=== PATIENT | female | born 1975 | race Caucasian/White ===

== ENCOUNTER → 2016-07-19 | Outpatient (CLI) | payer BC ==
--- NOTE | 2016-07-22 15:50 | MAM ---
History: Well woman exam. Date of exam: 07/19/2016 Services provided: Bilateral full field digital screening mammography. CAD, the images were reviewed with R2 computer aided detection. FINDINGS: Glandular tissue is scattered glandular contour. Bilateral subpectoral implants have a mammographically benign appearance. Comparison with 2014 study. Routine and [place] views are obtained. No dominant mass, architectural distortion or clustered microcalcification. IMPRESSION: Benign exam Recommendation: Routine annual mammography BIRAD CATEGORY: 2 BENIGN Electronically signed by: Ronel Javier MD 07/22/2016 3:38 PM CDT
== END | disposition home or self-care (01) ==
LOC: MAMMO 14:13
PROVIDERS: ATTEND Obstetrics & Gynecology
DX: Z12.31 Encounter for screening mammogram for malignant neoplasm of breast (principal)

== ENCOUNTER → 2016-12-11 | Outpatient (CLI) | payer SELFPAY ==
--- NOTE | 2016-12-11 21:37 | CT ---
PROCEDURE: Head HISTORY: MIGRAINE W/O AURA,INTRACTABLE,W/O STATUS MIGRAINOSUS Indication: Same as above Comparison: None Technique: CT of the head was done without intravenous contrast was done in the orthogonal planes. This exam was performed according to our departmental dose-optimization program, which includes automated exposure control, adjustment of the mA and/or KV according to the patient's size and/or use of iterative reconstruction technique. FINDINGS: There is no intracranial hemorrhage, midline shift mass effect or acute focal infarct. If clinical concern exists regarding an acute ischemic/vascular pathology being responsible for patient's symptomatology, an MRI of the brain is more sensitive than the current study, in ruling out such a possibility. There is good garcia/white matter differentiation. The ventricular system is normal. The mastoid air cells are unremarkable . The paranasal sinuses are unremarkable . There is no visualization of acute fractures involving the calvarium or the skull base. IMPRESSION: There is no acute intracranial abnormality. Electronically signed by: Gilles Ferguson MD 12/11/2016 9:35 PM CDT Workstation: [id number]
== END | disposition home or self-care (01) ==
LOC: CT 10:18
PROVIDERS: ATTEND Family Medicine
DX: G43.019 Migraine without aura, intractable, without status migrainosus (principal)

== ENCOUNTER → 2016-12-30 | Outpatient (CLI) | payer BC ==
--- NOTE | 2016-12-30 11:15 | MRI ---
EXAM DESCRIPTION: Brain w/oContrast CLINICAL HISTORY: MIGRAINE COMPARISON: CT head October 10, 2016 TECHNIQUE: Multiplanar, multi sequence MR images of the head are obtained without IV gadolinium contrast using standard imaging protocol. FINDINGS: The midline structures are not displaced. Sulci are age appropriate. The lateral, third, and fourth ventricles are normal in size, shape, and anatomic positioning. Normal garcia-white differentiation is seen. Normal flow voids are seen in the major intracranial vessels including the dural venous sinuses. There is no evidence of mass, mass effect, hydrocephalus, or acute intracranial hemorrhage. No abnormal extra-axial fluid collections are seen. No abnormal increased signal is seen on FLAIR, T2, or diffusion-weighted sequences. Gradient echo images show no abnormal signal. The pituitary is unremarkable. Mild mucosal thickening or mucous retention cyst in the floor the left maxillary sinus is seen. The visualized orbits and mastoid air cells are unremarkable. IMPRESSION: Unremarkable noncontrast MRI of the head. Electronically signed by: Miguel Cohen MD 12/30/2016 11:14 AM CDT
== END | disposition home or self-care (01) ==
LOC: MRI 10:10
PROVIDERS: ATTEND Family Medicine
DX: G43.019 Migraine without aura, intractable, without status migrainosus (principal)

== ENCOUNTER → 2017-04-07 | Outpatient (CLI) | payer BC | END | disposition home or self-care (01) | LOC: GMA 16:37 | PROVIDERS: ATTEND Nurse Practitioner Acute Care | DX: R13.19 Other dysphagia (principal) ==

== ENCOUNTER → 2017-04-09 | Outpatient (CLI) | payer BC ==
--- NOTE | 2017-04-09 20:31 | US ---
EXAM DESCRIPTION: Thyroid: Ultrasound. CLINICAL HISTORY: DYSPHAGIA COMPARISON: None. TECHNIQUE: Transcutaneous scannin-dimensional and Doppler modes. Largest nodule(s) bilaterally will have point score for TI-RADS. FINDINGS: Right lobe dimensions 4.4 x 1.4 x 1.4 cm. Heterogeneous echoes. Mostly cystic nodule measuring 3.6 x 3.4 x 2.5 mm with well-defined valencia, and parallel orientation (wider than tall). Minimal vascularity on the edge. Very hypoechoic but no echogenic foci. Normal vascularity in the remainder of the lobe with no echogenic foci. Contour right lobe smooth. Juxta-thyroid masses/fluid: none. Left lobe dimensions 4.4 x 1.4 x 1.3 cm. Homogeneous echoes. No cystic, no solid, and no complex lesions. Normal vascularity with no echogenic foci. Contour left lobe smooth. Juxta-thyroid masses/fluid: none. Isthmus thickness 2.3 mm. Homogeneous echoes. No cystic, no solid, and no complex lesions. Normal vascularity. Contour smooth. IMPRESSION: 1. Mostly cystic small nodule measuring 3.6 mm, with ACR TI RADS score 3. Grade TR 3-mildly suspicious. With greatest diameter less than 1.5 cm, one year ultrasound follow-up should be considered. 2. Left lobe and isthmus are unremarkable. No discrete solid masses, cystic masses, or edema in the surrounding soft tissues. *ACR TI-RADS recommendations: TR5 (greater than or equal to 7 points) - FNA if greater than or equal to 1 cm, follow-up if 0.5 - 0.9 cm every year for 5 years TR4 (4-6 points) - FNA if greater than or equal to 1.5 cm, follow-up if 1 - 1.4 cm in 1, 2, 3 and 5 years TR3 (3 points) - FNA if greater than or equal to 2.5 cm, follow -up if 1.5 - 2.4 cm in 1, 3 and 5 years TR2 (2 points) and TR1 (0 points) - No FNA or follow-up * ACR TI-RADS recommends that no more than two nodules with the highest ACR TI-RADS total point should be biopsied and no more than four nodules should be followed. White Paper of the ACR TI-RADS Committee, RAY, 2017. Electronically signed by: Maxwell Mendez MD 04/09/2017 8:30 PM [facility]
== END | disposition home or self-care (01) ==
LOC: US 09:57
PROVIDERS: ATTEND Nurse Practitioner Acute Care
DX: R13.19 Other dysphagia (principal)

== ENCOUNTER → 2017-08-06 | Outpatient (CLI) | payer BC ==
--- NOTE | 2017-08-06 16:23 | MAM ---
EXAM DESCRIPTION: 3D Screening BILATERAL : Digital Mammography. CLINICAL HISTORY: 42 years Female ANNUAL SCREENING . No complaints. No family history of breast cancer. Childbirth. Premenopausal. Bilateral breast augmentation. Currently on HRT. COMPARISON: 2-D digital screening bilateral study 06/22/2015. Report from prior examination also reviewed. TECHNIQUE: Bilateral CC and MLO projection full-field images, with [place] Implant Displacement 3-D tomosynthesis digital mammographic technique. CAD not utilized. Bilateral 2-D digital full-field images, MLO and CC projections, non-displaced, with CAD. FINDINGS: The breast parenchymal density pattern is: Scattered areas of fibroglandular density. No skin thickening or nipple retraction bilateral solitary microcalcifications. Bilateral retromuscular saline implants. Implant capsules appear intact where seen. No focal, stellate mass or density, focal asymmetry , and no suspicious microcalcifications bilaterally. Stable mammograms compared to prior study, taking into account differences in mammographic technique IMPRESSION: BI-RADS CATEGORY: 2 - BENIGN FINDINGS. FOLLOW UP: Routine digital bilateral screening, one year interval from July 2017. Written communication explaining the IMPRESSION and follow-up, will be mailed to the patient and referring health care provider. According to the [employer], yearly mammograms are recommended starting at age 40 and continuing as long as a woman is in good health. Any breast change noted on a breast self-exam should be reported promptly to the patient's healthcare provider. Breast MRI is recommended for women with an approximately 20-25% or greater lifetime risk of breast cancer, including women with a strong family history of breast or ovarian cancer and women who have been treated for Hodgkin's disease. A negative mammographic report should not delay tissue diagnosis in patients with significant clinical history or physical findings. Extremely dense breast tissue limits the sensitivity of digital mammography. Electronically signed by: Maxwell Mendez MD 08/06/2017 4:22 PM CDT
== END ==
LOC: MAMMO 11:32
PROVIDERS: ATTEND Family Medicine
DX: Z12.31 Encounter for screening mammogram for malignant neoplasm of breast (principal)

== ENCOUNTER → 2018-07-13 | Outpatient (CLI) | payer BC | LOC: GMALS 17:37 | PROVIDERS: ATTEND Nurse Practitioner Acute Care | DX: N95.8 Other specified menopausal and perimenopausal disorders (principal) ==

== ENCOUNTER → 2018-09-17 | Outpatient (CLI) | payer BC ==
--- NOTE | 2018-09-18 13:37 | MAM ---
EXAM DESCRIPTION: 3D Screening BILATERAL : Digital Mammography. CLINICAL HISTORY: 43 years Female Screening . No complaints. No personal or family history of breast cancer. Childbirth. Premenopausal. No HRT. Lifetime risk of developing breast cancer (Tyrer-Cuzick model)(%): 8.0. COMPARISON: Bilateral screening digital breast tomosynthesis 08/06/2017. TECHNIQUE: Bilateral CC and MLO projection full-field images, with [place] Implant Displacement digital tomosynthesis mammographic technique. Bilateral 2-D digital full-field images, MLO and CC projections, non-displaced. Bilateral digital 2-D full-field MLO images. Implant displaced. CAD not available for tomosynthesis or 2-D images. FINDINGS: The breast parenchymal density pattern is: Scattered areas of fibroglandular density. No skin thickening or nipple retraction. Solitary microcalcifications bilaterally. Bilateral retro-muscular saline implants. Capsules are intact where seen. No new focal, stellate mass or density, focal asymmetry , and no suspicious microcalcifications bilaterally. Stable mammograms compared to prior study. IMPRESSION: Benign exam. BIRAD CATEGORY: 2 BENIGN FINDINGS. RECOMMENDATIONS: FOLLOW UP: Routine digital bilateral mammographic screening, one year interval from August 2018. Written communication explaining the IMPRESSION and follow-up, will be mailed to the patient and referring health care provider. According to the [employer], yearly mammograms are recommended starting at age 40 and continuing as long as a woman is in good health. Any breast change noted on a breast self-exam should be reported promptly to the patient's healthcare provider. Breast MRI is recommended for women with an approximately 20-25% or greater lifetime risk of breast cancer, including women with a strong family history of breast or ovarian cancer and women who have been treated for Hodgkin's disease. A negative mammographic report should not delay tissue diagnosis in patients with significant clinical history or physical findings. Extremely dense breast tissue limits the sensitivity of digital mammography. Electronically signed by: Maxwell Mendez MD 09/18/2018 1:35 PM CDT
== END ==
LOC: MAMMO 13:00
PROVIDERS: ATTEND Family Medicine
DX: Z12.31 Encounter for screening mammogram for malignant neoplasm of breast (principal)

== ENCOUNTER → 2018-10-19 | Outpatient (CLI) | payer BC ==
--- NOTE | 2018-10-20 07:45 | MRI ---
EXAM DESCRIPTION: Lumbar Spine w/o Contrast : Magnetic Resonance Imaging. CLINICAL HISTORY: Lower extremity neuropathy COMPARISON: None. TECHNIQUE: Multiplanar, multiple standard sequences, non contrast MRI, lumbar spine. FINDINGS: L5-S1: The disc space is well visualized on axial T2-weighted series 501, image 3. Minimal disc space loss and desiccation. Tiny posterior midline bulge. Grade 1 anterolisthesis 2 mm. Abnormal signal in the bilateral pars interarticulares. Posterior elements unremarkable. Minimal disc bulge into the bilateral foramina abutting the exiting nerve roots which are mild to moderately narrowed. L4-L5: Minimal disc desiccation. No significant bulging with disc space maintained. Minimal thickening of the posterior flavum ligaments and mild arthrosis right facet. AP canal diameter 13 mm. Mild narrowing of the right foramen and moderate narrowing on the left with nerve root is abutted by facet. L3-L4: Normal signal in the disc and disc space maintained. No disc bulging. Bilateral mild facet hypertrophic arthrosis and ligament thickening. AP canal 11 mm. Bilateral foramina are patent. L2-L3: Minimal disc space loss and disc desiccation. No bulging. Minimal hypertrophy of the posterior ligaments. AP canal 11 mm. Bilateral foramina are patent. L1-L2: Minimal disc space loss. Minimal disc desiccation. No bulging. Posterior ligament thickening. Minimal facet hypertrophic arthrosis. Mild canal narrowing. Conus terminates at this level. L1 T12: Normal signal in the disc and disc space preserved. Posterior elements unremarkable. Canal and foramina are patent. No scoliosis. Minimal kyphosis. Paravertebral soft tissues unremarkable. Normal signal and caliber of the cord. Normal marrow signal in the remaining vertebral bodies and the posterior elements. Vertebral bodies are not compressed at any level. IMPRESSION: 1. Multiple discs are minimally desiccated. Minimal disc space loss at some levels. Canal narrowing at some levels due to thickening of the ligaments, hypertrophy of facets, and bilaterally shortened pedicles. No disc herniations. 2. Minimal disc space loss at L5-S1 and desiccation without herniation or significant canal or foraminal narrowing. Grade 1 anterolisthesis 2 mm. Possible bilateral L5 pars spondylolysis. Correlate with oblique lumbar spine radiographs. 3. Mild canal narrowing and moderate narrowing of the left foramen at L4-5. Moderate narrowing of the canal at L3-4 and L2-3. Electronically signed by: Maxwell Mendez MD 10/20/2018 7:43 AM CDT
== END ==
LOC: MRI 14:06
PROVIDERS: ATTEND Nurse Practitioner Acute Care
DX: G57.92 Unspecified mononeuropathy of left lower limb (principal); M51.36 Other intervertebral disc degeneration, lumbar region; M51.37 Other intervertebral disc degeneration, lumbosacral region; M43.17 Spondylolisthesis, lumbosacral region; M47.896 Other spondylosis, lumbar region

== ENCOUNTER → 2019-03-29 | Outpatient (CLI) | payer BC ==
--- NOTE | 2019-03-29 13:11 | CT ---
EXAM DESCRIPTION: CT ABDOMEN AND PELVIS WITH CONTRAST CLINICAL HISTORY: ABD PAIN COMPARISON: None Available. TECHNIQUE: CT of the abdomen and pelvis are performed during IV bolus administration of routine adult dose of nonionic iodinated IV contrast. Oral contrast media is administered as well. FINDINGS: In the lower chest, the lung bases are clear. Bilateral breast implants are partially visualized. Heart size is normal. CT abdomen Laparoscopically placed gastric band is seen around the proximal stomach with intact continuous appearance of the tubing. Gallbladder clips in the gallbladder fossa. The liver, spleen, pancreas, adrenal glands, stomach and right kidney are normal in appearance. No inflammation around the pancreas. Stone or cluster of stones in the medial mid left kidney. No bowel dilatation to suggest obstruction. No free air or free fluid. CT pelvis Question small appendix or prominent appendiceal stump. No inflammation around the cecum or terminal ileum or sigmoid colon. Bladder and distal ureters are negative for stones. Normal enhancement of pelvic vessels. No inguinal or lower pelvic adenopathy. Uterus is retroverted. No ovarian enlargement. Bone window images are negative for acute fracture. Bilateral L5 spondylolysis incidentally noted. Coronal and sagittal reformatted images confirm the findings. IMPRESSION: Left renal stones without obstructive uropathy. No acute process in the pelvis. This exam was performed according to our departmental dose-optimization program, which includes automated exposure control, adjustment of the mA and/or kV according to patient size and/or use of iterative reconstruction technique. Total DLP equals 635.33 mGycm. Electronically signed by: Maximiliano Joshua MD 03/29/2019 1:09 PM SHEAR OPERATOR
== END ==
LOC: CT 12:23
PROVIDERS: ATTEND Nurse Practitioner Acute Care
DX: N20.0 Calculus of kidney (principal); D51.3 Other dietary vitamin B12 deficiency anemia

== ENCOUNTER 2019-05-13 05:40 | Day surgery (SDC) | payer BC ==
[2019-05-13] MEDS ORDERED: LIDOCAINE 1% 10 ML VIAL INJ ONE (07:00)
[2019-05-13] MEDS ORDERED: PROPOFOL 200 MG/20 ML VIAL IV ONE (07:00)
[2019-05-13] MEDS: LACTATED RINGERS 1,000 ML ONE (08:18)
--- NOTE | 2019-05-13 10:05 | OP ---
DATE OF PROCEDURE: 05/13/19 PREOPERATIVE DIAGNOSIS: 1. Epigastric abdominal pain. 2. History of lap band procedure, desiring removal. POSTOPERATIVE DIAGNOSIS: 1. Gastritis. PROCEDURE: 1. EGD with biopsy of the pylorus and biopsy for Helicobacter pylori. 2. Biopsy of the stomach body for gastric polyp. 3. Biopsy of the GE junction. SURGEON: Jin Brink MD. COMPLICATIONS: None. ESTIMATED BLOOD LOSS: None. PLAN: Discharge and schedule laparoscopic band removal. INDICATION: As stated. FINDINGS: No erosion was seen related to the gastric band. PROCEDURE: Anesthesia was induced. The scope was passed without difficulty through the esophagus into the stomach and into the duodenum, which appeared normal. Upon withdrawal, she had a watermelon appearing stomach and assisted sales representative biopsies were taken near the pylorus. Upon retroflexion, there was no evidence of significant hiatal hernia and no evidence of band erosion. There were some inflammatory polyps. The most significant one was biopsied. Upon withdrawal, the GE junction was examined. It was somewhat inflamed. The line was well demarcated and assisted sales representative biopsy was taken here. The scope was withdrawn. The esophagus appeared normal. Overall, good exam. We will await biopsy results and proceed with her lab band removal. #[id number] [facility]
[2019-05-13 10:34] VITALS: BP 134/81; TEMP 98; O2SAT 99
== END 2019-05-13 10:15 | disposition home or self-care (01) ==
LOC: AMB 05:40
PROVIDERS: ATTEND Surgery
DX: K29.50 Unspecified chronic gastritis without bleeding (principal); K31.7 Polyp of stomach and duodenum; Z98.84 Bariatric surgery status; Z79.899 Other long term (current) drug therapy
CPT/HCPCS: 00731; 43239; 81025; J3490; J7120

== ENCOUNTER → 2019-06-03 | Outpatient (CLI) | payer BC | DX: Z01.810 Encounter for preprocedural cardiovascular examination (principal) ==

== ENCOUNTER → 2019-11-25 | Outpatient (CLI) | payer BC ==
--- NOTE | 2019-11-25 19:24 | CT ---
TECHNIQUE: Spiral CT examination of the paranasal sinuses. Multiplanar reformats provided. This exam was performed according to our departmental dose-optimization program, which includes automated exposure control, adjustment of the mA and/or kV according to patient size and/or use of iterative reconstruction technique. CLINICAL HISTORY PROVIDED: CHRONIC MAXILLARY SINUSITIS COMPARISON: None available. FINDINGS: Right: Maxillary: Unremarkable. Ethmoid: Unremarkable. Sphenoid: Unremarkable. Frontal: Hypoplastic. Infundibulum: Unremarkable. Left: Maxillary: Mucosal retention cyst measuring 9 mm. Ethmoid: Unremarkable. Sphenoid: Unremarkable. Frontal: Hypoplastic. Infundibulum: Unremarkable. Nasal Passage: Septal Deviation: None of significance. Septal Spur: None of significance. Mucosa: Unremarkable. Alysia Bullosa: Left alysia bullosa measuring 8 mm. Notable Anatomic Findings: None of significance. Visible Brain and Orbits: Unremarkable. Incidental Findings: None of significance. IMPRESSION: No CT evidence of acute or chronic sinusitis. Electronically signed by: Emil Lehman MD 11/25/2019 7:23 PM CDT
== END ==
LOC: CT 10:13
PROVIDERS: ATTEND Family Medicine
DX: J32.0 Chronic maxillary sinusitis (principal)

== ENCOUNTER → 2020-01-28 | Outpatient (CLI) | payer BC ==
--- NOTE | 2020-01-28 11:38 | US ---
EXAM DESCRIPTION: Venous,Lower Extremity LT (accession [id number]), Venous,Lower Extremity RT (accession [id number]): Ultrasound. CLINICAL HISTORY: LOCALIZED EDEMA COMPARISON: None Available. TECHNIQUE: Two -dimensional and doppler sonographic evaluation of the deep venous system of the bilateral lower extremities. FINDINGS: Doppler evaluation shows normal color flow and normal phasicity and augmentation of the bilateral common femoral veins, junctions with the bilateral proximal saphenous veins, femoral veins, popliteal veins, greater and lesser saphenous veins, peroneal and bilateral posterior tibial veins. These veins showed normal occlusion with transducer pressure. Two-dimensional survey showed no echogenic clot within these veins. IMPRESSION: Duplex ultrasound evaluation of the bilateral lower extremity deep venous systems showing no evidence of thrombosis. Electronically signed by: Maxwell Mendez MD 01/28/2020 11:36 AM MACHINE PRINTER
--- NOTE | 2020-01-28 11:38 | US ---
EXAM DESCRIPTION: Venous,Lower Extremity LT (accession [id number]), Venous,Lower Extremity RT (accession [id number]): Ultrasound. CLINICAL HISTORY: LOCALIZED EDEMA COMPARISON: None Available. TECHNIQUE: Two -dimensional and doppler sonographic evaluation of the deep venous system of the bilateral lower extremities. FINDINGS: Doppler evaluation shows normal color flow and normal phasicity and augmentation of the bilateral common femoral veins, junctions with the bilateral proximal saphenous veins, femoral veins, popliteal veins, greater and lesser saphenous veins, peroneal and bilateral posterior tibial veins. These veins showed normal occlusion with transducer pressure. Two-dimensional survey showed no echogenic clot within these veins. IMPRESSION: Duplex ultrasound evaluation of the bilateral lower extremity deep venous systems showing no evidence of thrombosis. Electronically signed by: Maxwell Mendez MD 01/28/2020 11:36 AM DATA ENTRY ASSOCIATE
== END ==
LOC: US 10:09
PROVIDERS: ATTEND Surgery
DX: R60.0 Localized edema (principal)